=== PATIENT | female | born 1935 | race Caucasian/White ===

== ENCOUNTER 2017-01-01 17:26 | Inpatient (IN) | payer MEDICARE, MEDICAID ==
[~2017-01-01] VITALS: Ht 157.5 cm; Wt 86.2 kg
[2017-01-02] VITALS: BP 113/69
[2017-01-02] MEDS ORDERED: Norco 5mg/325mg tab ORAL PRN (00:30)
[2017-01-02 04:00] VITALS: BP 120/71
[2017-01-02 05:44] LABS: BASOPHILS % (AUTO) 0.7 % (0.0-2.0); EOSINOPHILS % (AUTO) 4.5 % (0.0-3.0); LYMPHOCYTES % (AUTO) 21.4 % (20.0-45.0); MEAN CORPUSCULAR HEMOGLOBIN 29.3 PG (27.0-31.0); MEAN CORPUSCULAR HGB CONC 32.2 G/DL (32.0-36.0); MEAN CORPUSCULAR VOLUME 91 FL (80-99); MEAN PLATELET VOLUME 7.2 FL (6.5-10.1); MONOCYTES % (AUTO) 10.3 % (1.0-10.0); NEUTROPHILS % (AUTO) 63.1 % (45.0-75.0); PLATELET COUNT 212 K/UL (150-450); RED BLOOD COUNT 3.81 M/UL (4.20-5.40); WHITE BLOOD COUNT 5.7 K/UL (4.8-10.8)
[2017-01-02 06:14] LABS: ALANINE AMINOTRANSFERASE 12 U/L (3-33); ALBUMIN/GLOBULIN RATIO 0.8 (1.0-2.7); ANION GAP 14 (5-15); ASPARTATE AMINO TRANSFERASE 14 U/L (5-40); CALCIUM 8.8 mg/dL (8.6-10.2); CARBON DIOXIDE 25 mEQ/L (20-30); CHLORIDE 101 mEQ/L (98-107); CREATININE 1.5 mg/dL (0.5-0.9); HEMOLYSIS 1; PHOSPHORUS 4.1 mg/dL (2.5-4.8); POTASSIUM 4.6 mEQ/L (3.4-4.9); SODIUM 140 mEQ/L (135-145); TOTAL PROTEIN 6.8 g/dL (6.6-8.7)
[2017-01-02 08:00] VITALS: BP 125/65
[2017-01-02] MEDS: Lisinopril 20mg tab ORAL SCH (08:52)
[2017-01-02] MEDS: Heparin 5000 units/ml inj SUBQ SCH ×3 (08:57→21:15)
--- NOTE | 2017-01-02 09:57 | Diagnostic Imaging Report ---
Indication: Pelvic pain, history of left pelvic fracture Technique: Noncontrast spiral acquisitions obtained through the pelvis. Multiplanar reconstructions generated. Total dose length product 633 mGycm. CTDIvol(s) 22 mGy. Dose reduction achieved using automated exposure control Comparison: None Findings: There is a slightly comminuted fracture of the left inferior pubic ramus. This is slightly impacted. More posteriorly, there is buckling of the lateral cortex of the inferior pubic ramus. There is also a minimally displaced comminuted fracture of the medial superior pubic ramus. This is also slightly impacted. There is a small amount of hematoma and ecchymosis in the pelvic wall musculature. No right-sided pelvic fracture demonstrated. No hip fracture. The sacrum is intact. There are degenerative changes of the lumbosacral junction. There is colonic diverticulosis incidentally noted. Impression: Positive for comminuted multipartite fractures of the left superior and inferior pubic rami. Associated minimal pelvic sidewall ecchymosis noted Negative for evidence of acute hip fracture. Incidental finding of colonic diverticulosis The CT scanner at [facility] is accredited by the [employer] and the scans are performed using protocols designed to limit radiation exposure to as low as reasonably achievable to attain images of sufficient resolution adequate for diagnostic evaluation.
[2017-01-02 12:00] VITALS: BP 120/75
[2017-01-02] MEDS: Morphine Sulfate 4mg/ml Inj IVP PRN ×2 (14:09→19:19)
--- NOTE | 2017-01-02 15:58 | Consultation ---
History of Present Illness Present Illness Allergies: Coded Allergies: ORANGE JUICE (Verified Allergy, Unknown, 01/02/17) COPIED FROM UNCODED SECTION [place] (Verified Allergy, Unknown, 01/02/17) COPIED FROM UNCODED SECTION Medication History No Active Prescriptions or Reported Meds Patient History Healthcare decision maker ADONIS PABON Resuscitation status Full Code Advanced Directive on File Physical Exam Last 24 Hour Vital Signs Date Time Temp Pulse Resp B/P Pulse Ox O2 Delivery O2 Flow Rate FiO2 01/02/17 14:39 97.7 01/02/17 12:00 97.7 99 20 120/75 96 Nasal Cannula 2.0 01/02/17 08:52 128/65 01/02/17 08:00 96.8 90 20 125/65 97 Nasal Cannula 2.0 01/02/17 04:00 97.7 90 20 120/71 98 Nasal Cannula 2.0 01/02/17 00:00 97.5 90 18 113/69 97 Nasal Cannula 2.0 Intake and Output 01/01/17 01/02/17 19:00 07:00 Intake Total 240 ml Balance 240 ml Intake Oral 240 ml # Voids 1 Laboratory Tests Test 01/02/17 04:30 White Blood Count 5.7 K/UL (4.8-10.8) Red Blood Count 3.81 M/UL (4.20-5.40) L Hemoglobin 11.2 G/DL (12.0-16.0) L Hematocrit 34.7 % (37.0-47.0) L Mean Corpuscular Volume 91 FL (80-99) Mean Corpuscular Hemoglobin 29.3 PG (27.0-31.0) Mean Corpuscular Hemoglobin Concent 32.2 G/DL (32.0-36.0) Red Cell Distribution Width 14.0 % (11.6-14.8) Platelet Count 212 K/UL (150-450) Mean Platelet Volume 7.2 FL (6.5-10.1) Neutrophils (%) (Auto) 63.1 % (45.0-75.0) Lymphocytes (%) (Auto) 21.4 % (20.0-45.0) Monocytes (%) (Auto) 10.3 % (1.0-10.0) H Eosinophils (%) (Auto) 4.5 % (0.0-3.0) H Basophils (%) (Auto) 0.7 % (0.0-2.0) Prothrombin Time 10.0 SEC (9.30-11.50) Prothromb Time International Ratio 1.0 (0.9-1.1) Activated Partial Thromboplast Time 25 SEC (23-33) Sodium Level 140 mEQ/L (135-145) Potassium Level 4.6 mEQ/L (3.4-4.9) Chloride Level 101 mEQ/L (98-107) Carbon Dioxide Level 25 mEQ/L (20-30) Anion Gap 14 (5-15) Blood Urea Nitrogen 26 mg/dL (7-23) H Creatinine 1.5 mg/dL (0.5-0.9) H Estimat Glomerular Filtration Rate mL/min (>60) Glucose Level 116 mg/dL (74-106) H Calcium Level 8.8 mg/dL (8.6-10.2) Phosphorus Level 4.1 mg/dL (2.5-4.8) Magnesium Level 2.0 mg/dL (1.7-2.5) Total Bilirubin 0.5 mg/dL (0.0-1.2) Aspartate Amino Transf (AST/SGOT) 14 U/L (5-40) Alanine Aminotransferase (ALT/SGPT) 12 U/L (3-33) Alkaline Phosphatase 60 U/L (35-104) Total Protein 6.8 g/dL (6.6-8.7) Albumin 3.2 g/dL (3.5-5.2) L Globulin 3.6 g/dL Albumin/Globulin Ratio 0.8 (1.0-2.7) L Height (Feet): 5 Height (Inches): 2.00 Weight (Pounds): 190 Medications Current Medications Medications (Trade) Dose Ordered Sig/Sosa Route PRN Reason Start Time Stop Time Status Last Admin Dose Admin Acetaminophen (Tylenol) 650 mg Q6H PRN ORAL Mild Pain/Temp > 100.5 01/02/17 00:30 02/01/17 00:29 Acetaminophen/ Hydrocodone Bitart ([place] 5/325) 1 tab Q6H PRN ORAL For Pain 01/02/17 00:30 01/09/17 00:29 Heparin Sodium (Porcine) (Heparin 5000 units/ml) 5,000 units EVERY 8 HOURS SUBQ 01/02/17 08:00 02/01/17 07:59 01/02/17 14:50 Lisinopril (Prinivil) 20 mg DAILY ORAL 01/02/17 09:00 02/01/17 08:59 01/02/17 08:52 Morphine Sulfate (Morphine Sulfate) 4 mg EVERY 6 HOURS PRN IVP Severe Pain (Pain Scale 7-10) 01/02/17 00:30 01/09/17 00:29 01/02/17 14:09 Ondansetron HCl (Zofran) 4 mg EVERY 4 HOURS PRN IVP Nausea & Vomiting 01/02/17 00:30 02/01/17 00:29 JAQUAN SOFIA Jan 02, 2017 15:58
[2017-01-02 16:00] VITALS: BP 127/67
[2017-01-02] MEDS ORDERED: LORazepam 1mg tab ORAL PRN (16:00)
--- NOTE | 2017-01-02 19:09 | History & Physical ---
History and Physical History & Physicial Dictated for Int Med-Dr Aragon no. [id number]. GLENNY MARTINEZ Jan 02, 2017 19:09
[2017-01-02 19:29] VITALS: BP 123/45
[2017-01-02] MEDS: Docusate 100mg cap ORAL SCH (20:57)
--- NOTE | 2017-01-02 22:30 | History and Physical Report ---
DATE OF ADMISSION: 01/01/2017 CHIEF COMPLAINT: The patient is an 81-year-old white female, Serbian speaking, who presents with complaint of pelvic pain. HISTORY OF PRESENT ILLNESS: The patient herself speaks Serbian. I spoke to the patient's daughter, Julio over the telephone, who provided much of the history and physical. According to Julio, fell on 12/30/2016. The patient was then unable to get up. The patient fell while getting off of the toilet. The patient instructed toilet. The patient did not pass out. There was no loss of consciousness. According to Julio , the patient could not get up from the floor. The patient remained on the floor until 01/01/2017. The patient's daughter then called 911. The patient was transported to [facility] emergency room. The patient was found to have fractures of the superior inferior pubic rami on the left. The patient was transferred to [facility] for insurance purposes. The patient was admitted for superior inferior pubic rami fracture on the left as above. PAST MEDICAL HISTORY: Significant for, 1. Hypertension, however, the patient is not taking any medications for several years. 2. L1 fracture secondary to a fall 15 years ago. PAST SURGICAL HISTORY: The patient denies. CURRENT MEDICATIONS: The patient denies. ALLERGIES: No known drug allergies. SOCIAL HISTORY: The patient is a . The patient lives with her adult daughter, Julio. The patient denies tobacco use. The patient admits to rare alcohol use. REVIEW OF SYSTEMS: Constitutional: The patient denies weight loss or weight gain. The patient denies fevers or chills. HEENT: The patient denies ear or throat pain. Cardiovascular: The patient denies palpitations or chest pain. Chest: The patient denies wheezes or shortness of breath. Abdomen: The patient denies nausea, vomiting, diarrhea, or constipation. Genitourinary: The patient denies dysuria or increased frequency of urination. Neuromuscular: The patient complains of pelvic pain as above. The patient denies seizures or generalized weakness. PHYSICAL EXAMINATION: VITAL SIGNS: Temperature 97.7 degrees, respirations 20, pulse 90, and blood pressure 120/71. GENERAL: The patient is well-developed and well-nourished slightly obese white female, in no apparent distress. HEENT: Eyes, pupils are equal and responsive to light and accommodation. Extraocular movements are intact. NECK: Supple without lymphadenopathy. CHEST: Lungs are clear to auscultation bilaterally without wheezes or rales. CARDIOVASCULAR: Regular rate. S1 and S2 normal without murmurs, rubs, or gallops. ABDOMEN: Soft, nontender, and nondistended. Positive bowel sounds. No evidence of hepatosplenomegaly. Currently, no rebound or guarding. EXTREMITIES: Negative for clubbing, cyanosis, or edema. PELVIC: Palpation over the pubic area. LABORATORY AND DIAGNOSTIC DATA: Laboratory studies from [place] WBC 6.5, hemoglobin 11.9, hematocrit 35.8, and platelets 211,000. Sodium 137, potassium 4.6, chloride 104, CO2 25, BUN 30, creatinine 1.57, and glucose 103. An x-ray of the pelvis and hip revealed fractures of the superior and inferior pubic rami on the left. ASSESSMENT: This is an 81-year-old white female, 1. Pelvic pain. 2. Fracture of the left superior inferior pubic rami. 3. Hypertension. TREATMENT: 1. Pelvic pain/fracture of the left superior inferior pubic rami. An Orthopedic consultation with Dr. Andreas Ferguson. The patient is currently receiving oral [place] and intravenous morphine p.r.n. for pain. We will follow recommendation of Orthopedics. The patient may require surgical intervention at this point. 2. Hypertension. The patient is currently off medication. The patient will be given lisinopril 20 mg one tablet p.o. daily. The patient's blood pressure is elevated at this time. Asael Lopes M.D. DR: Nell JOB#: [id number] CC:
[2017-01-03 00:31] VITALS: BP 91/63
[2017-01-03 04:25] VITALS: BP 127/63
[2017-01-03] MEDS: Heparin 5000 units/ml inj SUBQ SCH ×3 (05:50→20:16)
[2017-01-03 07:00] LABS: BASOPHILS % (AUTO) 1.1 % (0.0-2.0); EOSINOPHILS % (AUTO) 3.5 % (0.0-3.0); LYMPHOCYTES % (AUTO) 23.1 % (20.0-45.0); MEAN CORPUSCULAR HEMOGLOBIN 29.1 PG (27.0-31.0); MEAN CORPUSCULAR HGB CONC 31.6 G/DL (32.0-36.0); MEAN CORPUSCULAR VOLUME 92 FL (80-99); MEAN PLATELET VOLUME 6.9 FL (6.5-10.1); MONOCYTES % (AUTO) 10.2 % (1.0-10.0); NEUTROPHILS % (AUTO) 62.2 % (45.0-75.0); PLATELET COUNT 217 K/UL (150-450); RED BLOOD COUNT 4.14 M/UL (4.20-5.40); RED CELL DISTRIBUTION WIDTH 13.6 % (11.6-14.8); WHITE BLOOD COUNT 6.6 K/UL (4.8-10.8)
[2017-01-03 07:18] LABS: ANION GAP 16 (5-15); CARBON DIOXIDE 23 mEQ/L (20-30); CHLORIDE 101 mEQ/L (98-107); CREATININE 1.7 mg/dL (0.5-0.9); HEMOLYSIS 7; SODIUM 140 mEQ/L (135-145)
[2017-01-03 08:00] VITALS: BP 135/64
--- NOTE | 2017-01-03 08:27 | Consultation ---
Consult Note Consult Note 81 yo dominican speaking female. hx gathered from chart- will speak with daughter as well. mechanical fall with pelvic fracture CT left superior and inferior pubic rami fracture no surgical intervention needed. can be WBAT. fu as outpt RANDY ROJAS Jan 03, 2017 08:27
[2017-01-03] MEDS: Lisinopril 20mg tab ORAL SCH (08:35)
[2017-01-03] MEDS: Docusate 100mg cap ORAL SCH ×2 (08:35→20:14)
[2017-01-03] MEDS ORDERED: Sodium Polystyrene Sulfonate 15gm Powder ORAL ONE (08:45)
--- NOTE | 2017-01-03 09:18 | Pulmonology Progress Note ---
Assessment/Plan Assessment/Plan ASSESSMENT s/p mechanical fall pelvic fracture SHANNON on ? CRI HTN PLAN OF CARE MS floor CT pelvis revealed comminuted multipartite fractures of the left superior and inferior pubic rami. ; no acute hip fracture ortho eval noted no surgical intervention needed. can be WBAT. fu with ortho as outpt pain management PT/OT DVT prophylaxis BP management with CASIE and optimize as needed Bowel regimen dc planning ? SNF vs home with HH per PMD , need to access home situation patient is exclusively Croatian speaking and if SNF, needs SNF with staff with Croatian speaking ability ( i.e. [facility] etc) case discussed and evaluated by supervising physician Subjective Allergies: Coded Allergies: ORANGE JUICE (Verified Allergy, Unknown, 01/02/17) COPIED FROM UNCODED SECTION [place] (Verified Allergy, Unknown, 01/02/17) COPIED FROM UNCODED SECTION Subjective denies chest pain, SOB, admits to intermittent low back and sacral pain seen and evaluated by ortho afebrile, no leukocytosis Objective Last 24 Hour Vital Signs Date Time Temp Pulse Resp B/P Pulse Ox O2 Delivery O2 Flow Rate FiO2 01/03/17 08:35 135/64 01/03/17 08:00 98.2 113 24 135/64 96 Room Air 01/03/17 04:25 96.8 100 16 127/63 93 Room Air 01/03/17 00:31 96.8 100 22 91/63 95 Room Air 01/02/17 19:49 98.1 01/02/17 19:29 98.1 78 20 123/45 96 Room Air 01/02/17 16:00 98.6 99 20 127/67 96 Nasal Cannula 2.0 01/02/17 12:00 97.7 99 20 120/75 96 Nasal Cannula 2.0 Intake and Output 01/02/17 01/03/17 19:00 07:00 Intake Total 400 ml 240 ml Balance 400 ml 240 ml Intake Oral 400 ml 240 ml # Voids 2 # Bowel Movements 2 General Appearance: no acute distress, other - awake, alert, exclusively Croatian speaking female HEENT: normocephalic, atraumatic Respiratory/Chest: chest wall non-tender, lungs clear, no respiratory distress , no accessory muscle use Cardiovascular: normal rate, no JVD Abdomen: normal bowel sounds, soft, non tender - obese Neurologic/Psychiatric: abnormal gait, alert, responsive Musculoskeletal: atrophy - BLE Laboratory Tests 01/03/17 04:55: White Blood Count 6.6, Red Blood Count 4.14L, Hemoglobin 12.1, Hematocrit 38.2, Mean Corpuscular Volume 92, Mean Corpuscular Hemoglobin 29.1, Mean Corpuscular Hemoglobin Concent 31.6L, Red Cell Distribution Width 13.6, Platelet Count 217, Mean Platelet Volume 6.9, Neutrophils (%) (Auto) 62.2, Lymphocytes (%) (Auto) 23.1, Monocytes (%) (Auto) 10.2H, Eosinophils (%) (Auto) 3.5H, Basophils (%) ( Auto) 1.1, Sodium Level 140, Potassium Level 5.0H, Chloride Level 101, Carbon Dioxide Level 23, Anion Gap 16H, Blood Urea Nitrogen 35H, Creatinine 1.7H, Estimat Glomerular Filtration Rate , Glucose Level 108H, Calcium Level 9.0 Current Medications Medications (Trade) Dose Ordered Sig/Sosa Route PRN Reason Start Time Stop Time Status Last Admin Dose Admin Acetaminophen (Tylenol) 650 mg Q6H PRN ORAL Mild Pain/Temp > 100.5 01/02/17 00:30 02/01/17 00:29 Acetaminophen/ Hydrocodone Bitart ([place] 5/325) 1 tab Q6H PRN ORAL For Pain 01/02/17 00:30 01/09/17 00:29 Docusate Sodium (Colace) 100 mg EVERY 12 HOURS ORAL 01/02/17 21:00 02/01/17 20:59 01/03/17 08:35 Heparin Sodium (Porcine) (Heparin 5000 units/ml) 5,000 units EVERY 8 HOURS SUBQ 01/02/17 08:00 02/01/17 07:59 01/03/17 05:50 Lisinopril (Prinivil) 20 mg DAILY ORAL 01/02/17 09:00 02/01/17 08:59 01/03/17 08:35 Lorazepam (Ativan) 1 mg Q4H PRN ORAL For Anxiety 01/02/17 16:00 01/09/17 15:59 Morphine Sulfate (Morphine Sulfate) 4 mg EVERY 6 HOURS PRN IVP Severe Pain (Pain Scale 7-10) 01/02/17 00:30 01/09/17 00:29 01/02/17 19:19 Ondansetron HCl (Zofran) 4 mg Q6H PRN IVP Nausea & Vomiting 01/02/17 16:00 02/01/17 15:59 Temazepam (Restoril) 15 mg HSPRN PRN ORAL Insomnia 01/02/17 16:00 01/09/17 15:59 01/02/17 21:11 Minh ([facility])Lennie NP Jan 03, 2017 09:17
[2017-01-03] MEDS ORDERED: D5 1/2NS 1,000 ML IV ONE (10:15)
--- NOTE | 2017-01-03 10:17 | Internal Med Progress Note ---
Subjective Physician Name Seven Nelson Attending Physician Seven Nelson MD Current Medications Medications (Trade) Dose Ordered Sig/Sosa Route PRN Reason Start Time Stop Time Status Last Admin Dose Admin Acetaminophen (Tylenol) 650 mg Q6H PRN ORAL Mild Pain/Temp > 100.5 01/02/17 00:30 02/01/17 00:29 Acetaminophen/ Hydrocodone Bitart ([place] 5/325) 1 tab Q6H PRN ORAL For Pain 01/02/17 00:30 01/09/17 00:29 Docusate Sodium (Colace) 100 mg EVERY 12 HOURS ORAL 01/02/17 21:00 02/01/17 20:59 01/03/17 08:35 Heparin Sodium (Porcine) (Heparin 5000 units/ml) 5,000 units EVERY 8 HOURS SUBQ 01/02/17 08:00 02/01/17 07:59 01/03/17 05:50 Lisinopril (Prinivil) 20 mg DAILY ORAL 01/02/17 09:00 02/01/17 08:59 01/03/17 08:35 Lorazepam (Ativan) 1 mg Q4H PRN ORAL For Anxiety 01/02/17 16:00 01/09/17 15:59 Morphine Sulfate (Morphine Sulfate) 4 mg EVERY 6 HOURS PRN IVP Severe Pain (Pain Scale 7-10) 01/02/17 00:30 01/09/17 00:29 01/02/17 19:19 Ondansetron HCl (Zofran) 4 mg Q6H PRN IVP Nausea & Vomiting 01/02/17 16:00 02/01/17 15:59 Temazepam (Restoril) 15 mg HSPRN PRN ORAL Insomnia 01/02/17 16:00 01/09/17 15:59 01/02/17 21:11 Allergies: Coded Allergies: ORANGE JUICE (Verified Allergy, Unknown, 01/02/17) COPIED FROM UNCODED SECTION [place] (Verified Allergy, Unknown, 01/02/17) COPIED FROM UNCODED SECTION Subjective awake, alert, responsive, C/O pelvic pain Objective Last Vital Signs Date Time Temp Pulse Resp B/P Pulse Ox O2 Delivery O2 Flow Rate FiO2 01/03/17 08:35 135/64 01/03/17 08:00 98.2 113 24 96 Room Air 01/02/17 16:00 2.0 Laboratory Tests Test 01/03/17 04:55 White Blood Count 6.6 K/UL (4.8-10.8) Red Blood Count 4.14 M/UL (4.20-5.40) L Hemoglobin 12.1 G/DL (12.0-16.0) Hematocrit 38.2 % (37.0-47.0) Mean Corpuscular Volume 92 FL (80-99) Mean Corpuscular Hemoglobin 29.1 PG (27.0-31.0) Mean Corpuscular Hemoglobin Concent 31.6 G/DL (32.0-36.0) L Red Cell Distribution Width 13.6 % (11.6-14.8) Platelet Count 217 K/UL (150-450) Mean Platelet Volume 6.9 FL (6.5-10.1) Neutrophils (%) (Auto) 62.2 % (45.0-75.0) Lymphocytes (%) (Auto) 23.1 % (20.0-45.0) Monocytes (%) (Auto) 10.2 % (1.0-10.0) H Eosinophils (%) (Auto) 3.5 % (0.0-3.0) H Basophils (%) (Auto) 1.1 % (0.0-2.0) Sodium Level 140 mEQ/L (135-145) Potassium Level 5.0 mEQ/L (3.4-4.9) H Chloride Level 101 mEQ/L (98-107) Carbon Dioxide Level 23 mEQ/L (20-30) Anion Gap 16 (5-15) H Blood Urea Nitrogen 35 mg/dL (7-23) H Creatinine 1.7 mg/dL (0.5-0.9) H Estimat Glomerular Filtration Rate mL/min (>60) Glucose Level 108 mg/dL (74-106) H Calcium Level 9.0 mg/dL (8.6-10.2) Intake and Output 01/02/17 01/03/17 19:00 07:00 Intake Total 400 ml 240 ml Balance 400 ml 240 ml Intake Oral 400 ml 240 ml # Voids 2 # Bowel Movements 2 Objective General: No acute distress, awake and alert HEENT: NCAT, sclera anicteric, PERRL, EOMI. Neck: Supple, no significant jugular venous distention, Lungs: Good inspiratory effort, no accessory muscle use, clear to auscultation bilaterally, no Wheeze or Rales. Heart: Regular rate and rhythm, normal S1/S2, no murmurs Abdomen: soft, nontender, nondistended. Normoactive bowel sounds. Morbid obesity. / Rectal: pelvic pain Extremities: No Cyanosis , clubbing or edema. Neuro: A&O x 3, Able to move all extremities Skin: warm, no rashes or lesions Psych: Normal mood and affect Assessment/Plan Assessment/Plan Mechanical fall with pelvic fracture --> left superior and inferior pubic rami fracture. HTN Morbid Obesity SHANNON Hyperkalemia Plan: Pain Medication start on IVF PT Mobility Dc Planning for SNF placement AM Labs Seven Nelson MD Jan 03, 2017 10:17
[2017-01-03] MEDS: Morphine Sulfate 4mg/ml Inj IVP PRN ×2 (10:32→20:14)
[2017-01-03 12:18] VITALS: BP 135/52
[2017-01-03 16:32] VITALS: BP 119/62
[2017-01-03 20:28] VITALS: BP 127/74
--- NOTE | 2017-01-03 22:45 | Discharge Summary ---
DATE OF ADMISSION: 01/01/2017 HOSPITAL COURSE: The patient is a pleasant 81-year-old Faroese-speaking female, who was admitted to [facility] after a fall. She was noted to have a left superior and inferior pubic rami fracture. Orthopedic consult has been called to determine if surgical intervention is needed. Majority of history is gathered from the patient's chart. PAST MEDICAL HISTORY: Hypertension. PAST SURGICAL HISTORY: None. CURRENT MEDICATIONS: Please see chart. ALLERGIES: None. SOCIAL HISTORY: She lives with her daughter. She does not drink. She does not smoke. She ambulates independently at baseline. PHYSICAL EXAM: She is a pleasant woman. She is cooperative with examination. She is Faroese speaking. She grimaces with palpation of the left pelvic area and points to pain in this area. She is neurovascularly intact with the lower extremities. She is able to move right and left hip without pain. There is no significant swelling or evidence of any skin breakdown. DIAGNOSTIC DATA: CT scan is reviewed. There is a left superior and inferior pubic rami fracture. IMPRESSION: Left superior and inferior pubic rami fracture after a mechanical fall. DISCUSSION: At this time, I discussed with the patient and her daughter via telephone call of my findings. At this point, the patient does not require surgical intervention. As such, it will go onto healing. She can be weightbearing as tolerated and should receive gentle physical therapy. She will follow up as an outpatient for ongoing follow up and serial x-rays to monitor healing of this fracture. All patient's questions were answered. Fredrick Magana M.D. Tejas Johnson DR: JOYCE JOB#: [id number] CC:
[2017-01-04 00:18] VITALS: BP 126/70
[2017-01-04 04:22] VITALS: BP 120/80
[2017-01-04] MEDS: Heparin 5000 units/ml inj SUBQ SCH ×3 (06:00→21:32)
[2017-01-04 06:22] LABS: BASOPHILS % (AUTO) 1.2 % (0.0-2.0); EOSINOPHILS % (AUTO) 3.7 % (0.0-3.0); LYMPHOCYTES % (AUTO) 21.2 % (20.0-45.0); MEAN CORPUSCULAR HEMOGLOBIN 29.2 PG (27.0-31.0); MEAN CORPUSCULAR VOLUME 91 FL (80-99); MONOCYTES % (AUTO) 10.6 % (1.0-10.0); NEUTROPHILS % (AUTO) 63.3 % (45.0-75.0); PLATELET COUNT 215 K/UL (150-450); RED BLOOD COUNT 3.88 M/UL (4.20-5.40); RED CELL DISTRIBUTION WIDTH 13.7 % (11.6-14.8); WHITE BLOOD COUNT 6.2 K/UL (4.8-10.8)
[2017-01-04 06:40] LABS: ANION GAP 13 (5-15); CALCIUM 8.8 mg/dL (8.6-10.2); CARBON DIOXIDE 25 mEQ/L (20-30); CHLORIDE 101 mEQ/L (98-107); CREATININE 1.3 mg/dL (0.5-0.9); HEMOLYSIS 1; MAGNESIUM 1.6 mg/dL (1.7-2.5); PHOSPHORUS 4.3 mg/dL (2.5-4.8); POTASSIUM 4.6 mEQ/L (3.4-4.9); SODIUM 139 mEQ/L (135-145)
[2017-01-04 08:07] VITALS: BP 134/69
[2017-01-04] MEDS: Lisinopril 20mg tab ORAL SCH (08:35)
[2017-01-04] MEDS: Docusate 100mg cap ORAL SCH ×2 (08:35→21:31)
[2017-01-04] MEDS: Morphine Sulfate 4mg/ml Inj IVP PRN (11:31)
[2017-01-04 12:17] VITALS: BP 140/84
--- NOTE | 2017-01-04 14:29 | Pulmonology Progress Note ---
Assessment/Plan Assessment/Plan ASSESSMENT s/p mechanical fall pelvic fracture SHANNON on ? CRI HTN PLAN OF CARE MS floor CT pelvis revealed comminuted multipartite fractures of the left superior and inferior pubic rami. ; no acute hip fracture ortho eval noted no surgical intervention needed. can be WBAT. fu with ortho as outpt pain management PT/OT DVT prophylaxis BP management with CASIE and optimize as needed Bowel regimen dc planning ? SNF vs home with HH per PMD , need to access home situation patient is exclusively Gambian speaking and if SNF, needs SNF with staff with Gambian speaking ability ( i.e. [facility] etc) case discussed and evaluated by supervising physician Subjective Allergies: Coded Allergies: ORANGE JUICE (Verified Allergy, Unknown, 01/02/17) COPIED FROM UNCODED SECTION [place] (Verified Allergy, Unknown, 01/02/17) COPIED FROM UNCODED SECTION Subjective denies chest pain, SOB, admits to occasional low back and sacral pain seen and evaluated by ortho afebrile, no leukocytosis Objective Last 24 Hour Vital Signs Date Time Temp Pulse Resp B/P Pulse Ox O2 Delivery O2 Flow Rate FiO2 01/04/17 12:17 97.9 108 19 140/84 95 Room Air 01/04/17 12:01 97.9 01/04/17 08:35 134/69 01/04/17 08:07 97.9 107 19 134/69 93 Room Air 01/04/17 04:22 97.5 92 19 120/80 97 Room Air 01/04/17 00:18 98.1 98 19 126/70 91 Room Air 01/03/17 20:28 99.0 103 19 127/74 91 Room Air 01/03/17 16:32 98.1 101 18 119/62 94 Room Air Intake and Output 01/03/17 01/04/17 19:00 07:00 Intake Total 885 ml 240 ml Output Total 250 ml Balance 635 ml 240 ml Intake Oral 360 ml 240 ml IV Total 525 ml Output Urine Total 250 ml # Voids 1 1 Objective General Appearance: no acute distress, awake, alert, exclusively Gambian speaking female HEENT: normocephalic, atraumatic Respiratory/Chest: chest wall non-tender, lungs clear, no respiratory distress , no accessory muscle use Cardiovascular: normal rate, no JVD Abdomen: normal bowel sounds, soft, non tender , obese Neurologic/Psychiatric: abnormal gait, alert, responsive Musculoskeletal: atrophy - BLE Laboratory Tests 01/04/17 05:50: White Blood Count 6.2, Red Blood Count 3.88L, Hemoglobin 11.3L, Hematocrit 35.4L , Mean Corpuscular Volume 91, Mean Corpuscular Hemoglobin 29.2, Mean Corpuscular Hemoglobin Concent 32.0, Red Cell Distribution Width 13.7, Platelet Count 215, Mean Platelet Volume 7.0, Neutrophils (%) (Auto) 63.3, Lymphocytes (% ) (Auto) 21.2, Monocytes (%) (Auto) 10.6H, Eosinophils (%) (Auto) 3.7H, Basophils (%) (Auto) 1.2, Sodium Level 139, Potassium Level 4.6, Chloride Level 101, Carbon Dioxide Level 25, Anion Gap 13, Blood Urea Nitrogen 28H, Creatinine 1.3H, Estimat Glomerular Filtration Rate , Glucose Level 116H, Calcium Level 8.8 , Phosphorus Level 4.3, Magnesium Level 1.6L Current Medications Medications (Trade) Dose Ordered Sig/Sosa Route PRN Reason Start Time Stop Time Status Last Admin Dose Admin Acetaminophen (Tylenol) 650 mg Q6H PRN ORAL Mild Pain/Temp > 100.5 01/02/17 00:30 02/01/17 00:29 Acetaminophen/ Hydrocodone Bitart ([place] 5/325) 1 tab Q6H PRN ORAL For Pain 01/02/17 00:30 01/09/17 00:29 Docusate Sodium (Colace) 100 mg EVERY 12 HOURS ORAL 01/02/17 21:00 02/01/17 20:59 01/04/17 08:35 Heparin Sodium (Porcine) (Heparin 5000 units/ml) 5,000 units EVERY 8 HOURS SUBQ 01/02/17 08:00 02/01/17 07:59 01/03/17 20:16 Lisinopril (Prinivil) 20 mg DAILY ORAL 01/02/17 09:00 02/01/17 08:59 01/04/17 08:35 Lorazepam (Ativan) 1 mg Q4H PRN ORAL For Anxiety 01/02/17 16:00 01/09/17 15:59 Morphine Sulfate (Morphine Sulfate) 4 mg EVERY 6 HOURS PRN IVP Severe Pain (Pain Scale 7-10) 01/02/17 00:30 01/09/17 00:29 01/04/17 11:31 Ondansetron HCl (Zofran) 4 mg Q6H PRN IVP Nausea & Vomiting 01/02/17 16:00 02/01/17 15:59 Temazepam (Restoril) 15 mg HSPRN PRN ORAL Insomnia 01/02/17 16:00 01/09/17 15:59 01/02/17 21:11 [facility] Ny NP Jan 04, 2017 14:29
--- NOTE | 2017-01-04 14:54 | Internal Med Progress Note ---
Subjective Date of Service: Jan 04, 2017 Physician Name Asael Martinez Attending Physician Seven Nelson MD Current Medications Medications (Trade) Dose Ordered Sig/Sosa Route PRN Reason Start Time Stop Time Status Last Admin Dose Admin Acetaminophen (Tylenol) 650 mg Q6H PRN ORAL Mild Pain/Temp > 100.5 01/02/17 00:30 02/01/17 00:29 Acetaminophen/ Hydrocodone Bitart ([place] 5/325) 1 tab Q6H PRN ORAL For Pain 01/02/17 00:30 01/09/17 00:29 Docusate Sodium (Colace) 100 mg EVERY 12 HOURS ORAL 01/02/17 21:00 02/01/17 20:59 01/04/17 08:35 Heparin Sodium (Porcine) (Heparin 5000 units/ml) 5,000 units EVERY 8 HOURS SUBQ 01/02/17 08:00 02/01/17 07:59 01/03/17 20:16 Lisinopril (Prinivil) 20 mg DAILY ORAL 01/02/17 09:00 02/01/17 08:59 01/04/17 08:35 Lorazepam (Ativan) 1 mg Q4H PRN ORAL For Anxiety 01/02/17 16:00 01/09/17 15:59 Morphine Sulfate (Morphine Sulfate) 4 mg EVERY 6 HOURS PRN IVP Severe Pain (Pain Scale 7-10) 01/02/17 00:30 01/09/17 00:29 01/04/17 11:31 Ondansetron HCl (Zofran) 4 mg Q6H PRN IVP Nausea & Vomiting 01/02/17 16:00 02/01/17 15:59 Temazepam (Restoril) 15 mg HSPRN PRN ORAL Insomnia 01/02/17 16:00 01/09/17 15:59 01/02/17 21:11 Allergies: Coded Allergies: ORANGE JUICE (Verified Allergy, Unknown, 01/02/17) COPIED FROM UNCODED SECTION [place] (Verified Allergy, Unknown, 01/02/17) COPIED FROM UNCODED SECTION ROS Limited/Unobtainable: No Constitutional: Reports: no symptoms HEENT: Reports: no symptoms Cardiovascular: Reports: no symptoms Respiratory: Reports: no symptoms Gastrointestinal/Abdominal: Reports: no symptoms Genitourinary: Reports: no symptoms Neurologic/Psychiatric: Reports: no symptoms Subjective 81 YO F admitted with pelvic pain and fall injury. Now fractured pelvis. Cover for Int Med-Dr Nelson. Await care home fac placement Objective Last Vital Signs Date Time Temp Pulse Resp B/P Pulse Ox O2 Delivery O2 Flow Rate FiO2 01/04/17 12:17 97.9 108 19 140/84 95 Room Air 01/02/17 16:00 2.0 Laboratory Tests Test 01/04/17 05:50 White Blood Count 6.2 K/UL (4.8-10.8) Red Blood Count 3.88 M/UL (4.20-5.40) L Hemoglobin 11.3 G/DL (12.0-16.0) L Hematocrit 35.4 % (37.0-47.0) L Mean Corpuscular Volume 91 FL (80-99) Mean Corpuscular Hemoglobin 29.2 PG (27.0-31.0) Mean Corpuscular Hemoglobin Concent 32.0 G/DL (32.0-36.0) Red Cell Distribution Width 13.7 % (11.6-14.8) Platelet Count 215 K/UL (150-450) Mean Platelet Volume 7.0 FL (6.5-10.1) Neutrophils (%) (Auto) 63.3 % (45.0-75.0) Lymphocytes (%) (Auto) 21.2 % (20.0-45.0) Monocytes (%) (Auto) 10.6 % (1.0-10.0) H Eosinophils (%) (Auto) 3.7 % (0.0-3.0) H Basophils (%) (Auto) 1.2 % (0.0-2.0) Sodium Level 139 mEQ/L (135-145) Potassium Level 4.6 mEQ/L (3.4-4.9) Chloride Level 101 mEQ/L (98-107) Carbon Dioxide Level 25 mEQ/L (20-30) Anion Gap 13 (5-15) Blood Urea Nitrogen 28 mg/dL (7-23) H Creatinine 1.3 mg/dL (0.5-0.9) H Estimat Glomerular Filtration Rate mL/min (>60) Glucose Level 116 mg/dL (74-106) H Calcium Level 8.8 mg/dL (8.6-10.2) Phosphorus Level 4.3 mg/dL (2.5-4.8) Magnesium Level 1.6 mg/dL (1.7-2.5) L Intake and Output 01/03/17 01/04/17 19:00 07:00 Intake Total 885 ml 240 ml Output Total 250 ml Balance 635 ml 240 ml Intake Oral 360 ml 240 ml IV Total 525 ml Output Urine Total 250 ml # Voids 1 1 Objective General: alert, cooperative, no distress, appears stated age Head: normocephalic, without obvious abnormality, atraumatic Eyes: conjunctivae/corneas clear. PERRL, EOM's intact Throat: lips, mucosa, and tongue normal. MMM Neck: supple, symmetrical, trachea midline, and no JVD Lungs: clear to auscultation bilaterally Heart: regular rate and rhythm, S1, S2 normal, no murmur, click, rub or gallop Abdomen: soft, non-tender, non-distended, bowel sounds normal; no masses or organomegaly Extremities: extremities normal, atraumatic, no cyanosis or edema Pulses: 2+ and symmetric Skin: skin color, texture, turgor normal; no rashes or lesions Neurologic: grossly normal, no focal deficits Assessment/Plan Problem List: (1) Pelvic pain Assessment & Plan: Due to fracture. See orthopedic note. Weight bearing as tolerated. (2) Hypertension Assessment & Plan: Continue lisinopril. (3) Fracture of left pelvis Assessment & Plan: See ortho note. Weight bearing as tolerated. Await care home fac placement Assessment/Plan Discharge planning: care home facility. ASAEL MARTINEZ Jan 04, 2017 14:54
[2017-01-04 16:21] VITALS: BP 125/66
[2017-01-04 20:15] VITALS: BP 108/69
--- NOTE | 2017-01-05 01:11 | Cardiology Report ---
APPROVED REPORT EKG Measurement Heart [id number] Sinus rhythm with 1st degree AV block Cannot rule out Anterior infarct, age undetermined Abnormal ECG
[2017-01-05 04:00] VITALS: BP 145/69
[2017-01-05] MEDS: Heparin 5000 units/ml inj SUBQ SCH ×3 (05:31→20:55)
[2017-01-05 07:27] LABS: BASOPHILS % (AUTO) 0.9 % (0.0-2.0); EOSINOPHILS % (AUTO) 2.9 % (0.0-3.0); LYMPHOCYTES % (AUTO) 16.1 % (20.0-45.0); MEAN CORPUSCULAR VOLUME 91 FL (80-99); MEAN PLATELET VOLUME 7.5 FL (6.5-10.1); NEUTROPHILS % (AUTO) 70.1 % (45.0-75.0); PLATELET COUNT 217 K/UL (150-450); RED BLOOD COUNT 3.68 M/UL (4.20-5.40); RED CELL DISTRIBUTION WIDTH 13.5 % (11.6-14.8); WHITE BLOOD COUNT 6.7 K/UL (4.8-10.8)
[2017-01-05 07:48] LABS: ANION GAP 14 (5-15); CALCIUM 9.3 mg/dL (8.6-10.2); CARBON DIOXIDE 25 mEQ/L (20-30); CHLORIDE 99 mEQ/L (98-107); CREATININE 1.5 mg/dL (0.5-0.9); HEMOLYSIS 3; POTASSIUM 4.4 mEQ/L (3.4-4.9); SODIUM 138 mEQ/L (135-145)
[2017-01-05 08:00] VITALS: BP 114/62
[2017-01-05] MEDS: Docusate 100mg cap ORAL SCH ×2 (08:33→20:56)
[2017-01-05] MEDS: Lisinopril 20mg tab ORAL SCH (08:34)
[2017-01-05] MEDS: Morphine Sulfate 4mg/ml Inj IVP PRN (08:53)
[2017-01-05 12:00] VITALS: BP 119/65
--- NOTE | 2017-01-05 13:07 | Pulmonology Progress Note ---
Assessment/Plan Assessment/Plan ASSESSMENT s/p mechanical fall pelvic fracture SHANNON on ? 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 ; no acute hip fracture ortho eval noted no surgical intervention needed. WBAT. fu with ortho as outpt pain management PT/OT DVT prophylaxis BP management with CASIE and optimize as needed Bowel regimen dc planning ? SNF vs home with HH per PMD , need to access home situation patient is exclusively [place]ian speaking and if SNF, needs SNF with staff with [place] speaking ability ( i.e. [facility] etc) patient prefers to go home with HH services for PT/OT arrangement in process case discussed and evaluated by supervising physician Subjective Allergies: Coded Allergies: ORANGE JUICE (Verified Allergy, Unknown, 01/02/17) COPIED FROM UNCODED SECTION [place] (Verified Allergy, Unknown, 01/02/17) COPIED FROM UNCODED SECTION Subjective denies chest pain, SOB, admits to occasional low back and sacral pain , which controlled with medications seen and evaluated by ortho afebrile, no leukocytosis Objective Last 24 Hour Vital Signs Date Time Temp Pulse Resp B/P Pulse Ox O2 Delivery O2 Flow Rate FiO2 01/05/17 12:00 97.9 94 20 119/65 95 Room Air 01/05/17 09:23 97.9 01/05/17 08:34 114/62 01/05/17 08:00 97.9 116 17 114/62 93 Room Air 01/05/17 04:00 97.7 87 19 145/69 94 Room Air 01/04/17 20:15 97.7 62 19 108/69 97 Room Air 01/04/17 16:21 97.5 77 19 125/66 93 Room Air Intake and Output 01/04/17 01/05/17 19:00 07:00 # Voids 2 Objective General Appearance: no acute distress, awake, alert, exclusively [place]ian speaking female HEENT: normocephalic, atraumatic Respiratory/Chest: chest wall non-tender, lungs clear, no respiratory distress , no accessory muscle use Cardiovascular: normal rate, no JVD Abdomen: normal bowel sounds, soft, non tender , obese Neurologic/Psychiatric: abnormal gait, alert, responsive Musculoskeletal: atrophy - BLE Laboratory Tests 01/05/17 05:05: White Blood Count 6.7, Red Blood Count 3.68L, Hemoglobin 11.0L, Hematocrit 33.4L , Mean Corpuscular Volume 91, Mean Corpuscular Hemoglobin 30.0, Mean Corpuscular Hemoglobin Concent 33.0, Red Cell Distribution Width 13.5, Platelet Count 217, Mean Platelet Volume 7.5, Neutrophils (%) (Auto) 70.1, Lymphocytes (% ) (Auto) 16.1L, Monocytes (%) (Auto) 10.0, Eosinophils (%) (Auto) 2.9, Basophils (%) (Auto) 0.9, Sodium Level 138, Potassium Level 4.4, Chloride Level 99, Carbon Dioxide Level 25, Anion Gap 14, Blood Urea Nitrogen 30H, Creatinine 1.5H, Estimat Glomerular Filtration Rate , Glucose Level 113H, Calcium Level 9.3 Current Medications Medications (Trade) Dose Ordered Sig/Sosa Route PRN Reason Start Time Stop Time Status Last Admin Dose Admin Acetaminophen (Tylenol) 650 mg Q6H PRN ORAL Mild Pain/Temp > 100.5 01/02/17 00:30 02/01/17 00:29 Acetaminophen/ Hydrocodone Bitart ([place] 5/325) 1 tab Q6H PRN ORAL For Pain 01/02/17 00:30 01/09/17 00:29 Docusate Sodium (Colace) 100 mg EVERY 12 HOURS ORAL 01/02/17 21:00 02/01/17 20:59 01/05/17 08:33 Heparin Sodium (Porcine) (Heparin 5000 units/ml) 5,000 units EVERY 8 HOURS SUBQ 01/02/17 08:00 02/01/17 07:59 01/05/17 05:31 Lisinopril (Prinivil) 20 mg DAILY ORAL 01/02/17 09:00 02/01/17 08:59 01/05/17 08:34 Lorazepam (Ativan) 1 mg Q4H PRN ORAL For Anxiety 01/02/17 16:00 01/09/17 15:59 Morphine Sulfate (Morphine Sulfate) 4 mg EVERY 6 HOURS PRN IVP Severe Pain (Pain Scale 7-10) 01/02/17 00:30 01/09/17 00:29 01/05/17 08:53 Ondansetron HCl (Zofran) 4 mg Q6H PRN IVP Nausea & Vomiting 6/1/17 16:00 02/01/17 15:59 Temazepam (Restoril) 15 mg HSPRN PRN ORAL Insomnia 01/02/17 16:00 01/09/17 15:59 01/02/17 21:11 Minh ([facility])Lennie NP Jan 05, 2017 13:07
--- NOTE | 2017-01-05 15:50 | Internal Med Progress Note ---
Subjective Date of Service: Jan 05, 2017 Physician Name Glenny Martinez Attending Physician Seven Nelson MD Current Medications Medications (Trade) Dose Ordered Sig/Sosa Route PRN Reason Start Time Stop Time Status Last Admin Dose Admin Acetaminophen (Tylenol) 650 mg Q6H PRN ORAL Mild Pain/Temp > 100.5 01/02/17 00:30 02/01/17 00:29 Acetaminophen/ Hydrocodone Bitart ([place] 5/325) 1 tab Q6H PRN ORAL For Pain 01/02/17 00:30 01/09/17 00:29 Docusate Sodium (Colace) 100 mg EVERY 12 HOURS ORAL 01/02/17 21:00 02/01/17 20:59 01/05/17 08:33 Heparin Sodium (Porcine) (Heparin 5000 units/ml) 5,000 units EVERY 8 HOURS SUBQ 01/02/17 08:00 02/01/17 07:59 01/05/17 14:53 Lisinopril (Prinivil) 20 mg DAILY ORAL 01/02/17 09:00 02/01/17 08:59 01/05/17 08:34 Lorazepam (Ativan) 1 mg Q4H PRN ORAL For Anxiety 01/02/17 16:00 01/09/17 15:59 Morphine Sulfate (Morphine Sulfate) 4 mg EVERY 6 HOURS PRN IVP Severe Pain (Pain Scale 7-10) 01/02/17 00:30 01/09/17 00:29 01/05/17 08:53 Ondansetron HCl (Zofran) 4 mg Q6H PRN IVP Nausea & Vomiting 01/02/17 16:00 02/01/17 15:59 Temazepam (Restoril) 15 mg HSPRN PRN ORAL Insomnia 01/02/17 16:00 01/09/17 15:59 01/02/17 21:11 Allergies: Coded Allergies: ORANGE JUICE (Verified Allergy, Unknown, 01/02/17) COPIED FROM UNCODED SECTION [place] (Verified Allergy, Unknown, 01/02/17) COPIED FROM UNCODED SECTION Subjective 81 YO F admitted with pelvic pain and fall injury. Now fractured pelvis. Cover for Int Fernando-Dr Nelson. Objective Last Vital Signs Date Time Temp Pulse Resp B/P Pulse Ox O2 Delivery O2 Flow Rate FiO2 01/05/17 12:00 97.9 94 20 119/65 95 Room Air 01/02/17 16:00 2.0 Laboratory Tests Test 01/05/17 05:05 White Blood Count 6.7 K/UL (4.8-10.8) Red Blood Count 3.68 M/UL (4.20-5.40) L Hemoglobin 11.0 G/DL (12.0-16.0) L Hematocrit 33.4 % (37.0-47.0) L Mean Corpuscular Volume 91 FL (80-99) Mean Corpuscular Hemoglobin 30.0 PG (27.0-31.0) Mean Corpuscular Hemoglobin Concent 33.0 G/DL (32.0-36.0) Red Cell Distribution Width 13.5 % (11.6-14.8) Platelet Count 217 K/UL (150-450) Mean Platelet Volume 7.5 FL (6.5-10.1) Neutrophils (%) (Auto) 70.1 % (45.0-75.0) Lymphocytes (%) (Auto) 16.1 % (20.0-45.0) L Monocytes (%) (Auto) 10.0 % (1.0-10.0) Eosinophils (%) (Auto) 2.9 % (0.0-3.0) Basophils (%) (Auto) 0.9 % (0.0-2.0) Sodium Level 138 mEQ/L (135-145) Potassium Level 4.4 mEQ/L (3.4-4.9) Chloride Level 99 mEQ/L (98-107) Carbon Dioxide Level 25 mEQ/L (20-30) Anion Gap 14 (5-15) Blood Urea Nitrogen 30 mg/dL (7-23) H Creatinine 1.5 mg/dL (0.5-0.9) H Estimat Glomerular Filtration Rate mL/min (>60) Glucose Level 113 mg/dL (74-106) H Calcium Level 9.3 mg/dL (8.6-10.2) Intake and Output 01/04/17 01/05/17 19:00 07:00 # Voids 2 Objective General: alert, cooperative, no distress, appears stated age Head: normocephalic, without obvious abnormality, atraumatic Eyes: conjunctivae/corneas clear. PERRL, EOM's intact Throat: lips, mucosa, and tongue normal. MMM Neck: supple, symmetrical, trachea midline, and no JVD Lungs: clear to auscultation bilaterally Heart: regular rate and rhythm, S1, S2 normal, no murmur, click, rub or gallop Abdomen: soft, non-tender, non-distended, bowel sounds normal; no masses or organomegaly Extremities: extremities normal, atraumatic, no cyanosis or edema Pulses: 2+ and symmetric Skin: skin color, texture, turgor normal; no rashes or lesions Neurologic: grossly normal, no focal deficits Assessment/Plan Problem List: (1) Pelvic pain Assessment & Plan: Due to fracture. See orthopedic note. Weight bearing as tolerated. (2) Hypertension Assessment & Plan: Continue lisinopril. (3) Fracture of left pelvis Assessment & Plan: See ortho note. Weight bearing as tolerated. Await [facility] fac placement Assessment/Plan Discharge planning: Home with [facility]. D/W daughter at bedside. GLENNY MARTINEZ Jan 05, 2017 15:50
[2017-01-05 16:00] VITALS: BP 117/72
[2017-01-05 20:00] VITALS: BP 125/71
[2017-01-06] VITALS: BP 124/74
[2017-01-06 04:00] VITALS: BP 145/73
[2017-01-06] MEDS: Heparin 5000 units/ml inj SUBQ SCH ×2 (05:34→14:16)
[2017-01-06 06:20] LABS: LYMPHOCYTES % (AUTO) 18.4 % (20.0-45.0); MEAN CORPUSCULAR HEMOGLOBIN 29.8 PG (27.0-31.0); MEAN CORPUSCULAR HGB CONC 33.2 G/DL (32.0-36.0); MEAN CORPUSCULAR VOLUME 90 FL (80-99); MONOCYTES % (AUTO) 10.3 % (1.0-10.0); NEUTROPHILS % (AUTO) 67.4 % (45.0-75.0); PLATELET COUNT 239 K/UL (150-450); RED BLOOD COUNT 3.75 M/UL (4.20-5.40); RED CELL DISTRIBUTION WIDTH 13.4 % (11.6-14.8); WHITE BLOOD COUNT 6.2 K/UL (4.8-10.8)
[2017-01-06 06:46] LABS: ANION GAP 15 (5-15); CALCIUM 9.2 mg/dL (8.6-10.2); CARBON DIOXIDE 23 mEQ/L (20-30); CHLORIDE 99 mEQ/L (98-107); CREATININE 1.5 mg/dL (0.5-0.9); HEMOLYSIS 3; POTASSIUM 4.4 mEQ/L (3.4-4.9); SODIUM 137 mEQ/L (135-145)
[2017-01-06 08:00] VITALS: BP 148/74
[2017-01-06] MEDS: Docusate 100mg cap ORAL SCH (08:38)
[2017-01-06] MEDS: Lisinopril 20mg tab ORAL SCH (08:38)
[2017-01-06] MEDS: Morphine Sulfate 4mg/ml Inj IVP PRN (10:02)
[2017-01-06] MEDS ORDERED: NORCO 5-325 TA1 EACH ORAL (11:08)
[2017-01-06] MEDS ORDERED: LISINOPRIL20 MG ORAL (11:08)
--- NOTE | 2017-01-06 11:10 | Internal Med Progress Note ---
Subjective Date of Service: Jan 06, 2017 Physician Name Glenny Martinez Attending Physician Seven Nelson MD Current Medications Medications (Trade) Dose Ordered Sig/Sosa Route PRN Reason Start Time Stop Time Status Last Admin Dose Admin Acetaminophen (Tylenol) 650 mg Q6H PRN ORAL Mild Pain/Temp > 100.5 01/02/17 00:30 02/01/17 00:29 Acetaminophen/ Hydrocodone Bitart ([place] 5/325) 1 tab Q6H PRN ORAL For Pain 01/02/17 00:30 01/09/17 00:29 Docusate Sodium (Colace) 100 mg EVERY 12 HOURS ORAL 01/02/17 21:00 02/01/17 20:59 01/06/17 08:38 Heparin Sodium (Porcine) (Heparin 5000 units/ml) 5,000 units EVERY 8 HOURS SUBQ 01/02/17 08:00 02/01/17 07:59 01/06/17 05:34 Lisinopril (Prinivil) 20 mg DAILY ORAL 01/02/17 09:00 02/01/17 08:59 01/06/17 08:38 Lorazepam (Ativan) 1 mg Q4H PRN ORAL For Anxiety 01/02/17 16:00 01/09/17 15:59 Morphine Sulfate (Morphine Sulfate) 4 mg EVERY 6 HOURS PRN IVP Severe Pain (Pain Scale 7-10) 01/02/17 00:30 01/09/17 00:29 01/06/17 10:02 Ondansetron HCl (Zofran) 4 mg Q6H PRN IVP Nausea & Vomiting 01/02/17 16:00 02/01/17 15:59 Temazepam (Restoril) 15 mg HSPRN PRN ORAL Insomnia 01/02/17 16:00 01/09/17 15:59 01/02/17 21:11 Allergies: Coded Allergies: ORANGE JUICE (Verified Allergy, Unknown, 01/02/17) COPIED FROM UNCODED SECTION [place] (Verified Allergy, Unknown, 01/02/17) COPIED FROM UNCODED SECTION ROS Limited/Unobtainable: No Constitutional: Reports: no symptoms HEENT: Reports: no symptoms Cardiovascular: Reports: no symptoms Respiratory: Reports: no symptoms Gastrointestinal/Abdominal: Reports: no symptoms Genitourinary: Reports: no symptoms Neurologic/Psychiatric: Reports: no symptoms Subjective 81 YO F admitted with pelvic pain and fall injury. Now fractured pelvis. Cover for Int Fernando-Dr Nelson. Objective Last Vital Signs Date Time Temp Pulse Resp B/P Pulse Ox O2 Delivery O2 Flow Rate FiO2 01/06/17 10:32 96.6 01/06/17 08:38 148/74 01/06/17 08:00 94 18 92 Room Air 01/02/17 16:00 2.0 Laboratory Tests Test 01/06/17 05:30 White Blood Count 6.2 K/UL (4.8-10.8) Red Blood Count 3.75 M/UL (4.20-5.40) L Hemoglobin 11.2 G/DL (12.0-16.0) L Hematocrit 33.6 % (37.0-47.0) L Mean Corpuscular Volume 90 FL (80-99) Mean Corpuscular Hemoglobin 29.8 PG (27.0-31.0) Mean Corpuscular Hemoglobin Concent 33.2 G/DL (32.0-36.0) Red Cell Distribution Width 13.4 % (11.6-14.8) Platelet Count 239 K/UL (150-450) Mean Platelet Volume 7.0 FL (6.5-10.1) Neutrophils (%) (Auto) 67.4 % (45.0-75.0) Lymphocytes (%) (Auto) 18.4 % (20.0-45.0) L Monocytes (%) (Auto) 10.3 % (1.0-10.0) H Eosinophils (%) (Auto) 3.0 % (0.0-3.0) Basophils (%) (Auto) 1.0 % (0.0-2.0) Sodium Level 137 mEQ/L (135-145) Potassium Level 4.4 mEQ/L (3.4-4.9) Chloride Level 99 mEQ/L (98-107) Carbon Dioxide Level 23 mEQ/L (20-30) Anion Gap 15 (5-15) Blood Urea Nitrogen 28 mg/dL (7-23) H Creatinine 1.5 mg/dL (0.5-0.9) H Estimat Glomerular Filtration Rate mL/min (>60) Glucose Level 108 mg/dL (74-106) H Calcium Level 9.2 mg/dL (8.6-10.2) Intake and Output 01/05/17 01/06/17 19:00 07:00 Intake Total 600 ml 540 ml Balance 600 ml 540 ml Intake Oral 600 ml 540 ml # Voids 1 3 Objective General: alert, cooperative, no distress, appears stated age Head: normocephalic, without obvious abnormality, atraumatic Eyes: conjunctivae/corneas clear. PERRL, EOM's intact Throat: lips, mucosa, and tongue normal. MMM Neck: supple, symmetrical, trachea midline, and no JVD Lungs: clear to auscultation bilaterally Heart: regular rate and rhythm, S1, S2 normal, no murmur, click, rub or gallop Abdomen: soft, non-tender, non-distended, bowel sounds normal; no masses or organomegaly Extremities: extremities normal, atraumatic, no cyanosis or edema Pulses: 2+ and symmetric Skin: skin color, texture, turgor normal; no rashes or lesions Neurologic: grossly normal, no focal deficits Assessment/Plan Problem List: (1) Pelvic pain Assessment & Plan: Due to fracture. See orthopedic note. Weight bearing as tolerated. (2) Hypertension Assessment & Plan: Continue lisinopril. (3) Fracture of left pelvis Assessment & Plan: See ortho note. Weight bearing as tolerated. Await alf fac placement Status: stable Assessment/Plan Discharge home today with [facility]. D/W daughter at bedside. GLENNY MARTINEZ Jan 06, 2017 11:10
[2017-01-06 12:00] VITALS: BP 106/59
--- NOTE | 2017-01-06 15:48 | Wound Care Consultation ---
Wound Assessment Wound Assessment : Wound Present on Admission: No New Wound: Yes Status Change of Wound: No Wound Location Body Site Modif: mid Wound Location Body Site: sacral Wound Type: rash Ronald Test: Does not Ronald Wound Length: 3.0 Wound Width: 6.0 Percent of Wound Bernard/Red: 100 Wound Drainage Amount: None Wound Drainage Odor: None/Absent Tissue Surrounding Wound: Intact Wound General Appearance: Asymptomatic, Reddened Wound Comment #1 Rash on sacral area Recommendation -Local wound care per protocol for rash on sacral area -Keep clean and dry -Turn and reposition -Optimize nutrition -Assess and f/u accordingly for any changes SIS WINCHESTER RN Jan 06, 2017 15:48
[2017-01-06 16:00] VITALS: BP 120/67
--- NOTE | 2017-01-06 16:03 | Pulmonology Progress Note ---
Subjective Allergies: Coded Allergies: ORANGE JUICE (Verified Allergy, Unknown, 01/02/17) COPIED FROM UNCODED SECTION [place] (Verified Allergy, Unknown, 01/02/17) COPIED FROM UNCODED SECTION Objective Last 24 Hour Vital Signs Date Time Temp Pulse Resp B/P Pulse Ox O2 Delivery O2 Flow Rate FiO2 01/06/17 12:00 98.1 106 18 106/59 93 Room Air 01/06/17 10:32 96.6 01/06/17 08:38 148/74 01/06/17 08:00 96.6 94 18 148/74 92 Room Air 01/06/17 04:00 97.9 94 18 145/73 96 01/06/17 00:00 98.0 90 18 124/74 94 Room Air 01/05/17 20:00 98.4 93 18 125/71 93 Room Air Intake and Output 01/05/17 01/06/17 19:00 07:00 Intake Total 600 ml 540 ml Balance 600 ml 540 ml Intake Oral 600 ml 540 ml # Voids 1 3 Laboratory Tests 01/06/17 05:30: White Blood Count 6.2, Red Blood Count 3.75L, Hemoglobin 11.2L, Hematocrit 33.6L , Mean Corpuscular Volume 90, Mean Corpuscular Hemoglobin 29.8, Mean Corpuscular Hemoglobin Concent 33.2, Red Cell Distribution Width 13.4, Platelet Count 239, Mean Platelet Volume 7.0, Neutrophils (%) (Auto) 67.4, Lymphocytes (% ) (Auto) 18.4L, Monocytes (%) (Auto) 10.3H, Eosinophils (%) (Auto) 3.0, Basophils (%) (Auto) 1.0, Sodium Level 137, Potassium Level 4.4, Chloride Level 99, Carbon Dioxide Level 23, Anion Gap 15, Blood Urea Nitrogen 28H, Creatinine 1.5H, Estimat Glomerular Filtration Rate , Glucose Level 108H, Calcium Level 9.2 Current Medications Medications (Trade) Dose Ordered Sig/Sosa Route PRN Reason Start Time Stop Time Status Last Admin Dose Admin Acetaminophen (Tylenol) 650 mg Q6H PRN ORAL Mild Pain/Temp > 100.5 01/02/17 00:30 02/01/17 00:29 Acetaminophen/ Hydrocodone Bitart ([place] 5/325) 1 tab Q6H PRN ORAL For Pain 01/02/17 00:30 6/8/17 00:29 Clotrimazole (Lotrimin) 1 applic EVERY 12 HOURS TOPIC 01/06/17 21:00 02/05/17 20:59 Docusate Sodium (Colace) 100 mg EVERY 12 HOURS ORAL 01/02/17 21:00 02/01/17 20:59 01/06/17 08:38 Heparin Sodium (Porcine) (Heparin 5000 units/ml) 5,000 units EVERY 8 HOURS SUBQ 01/02/17 08:00 02/01/17 07:59 01/06/17 14:16 Lisinopril (Prinivil) 20 mg DAILY ORAL 01/02/17 09:00 02/01/17 08:59 01/06/17 08:38 Lorazepam (Ativan) 1 mg Q4H PRN ORAL For Anxiety 01/02/17 16:00 01/09/17 15:59 Morphine Sulfate (Morphine Sulfate) 4 mg EVERY 6 HOURS PRN IVP Severe Pain (Pain Scale 7-10) 01/02/17 00:30 01/09/17 00:29 01/06/17 10:02 Ondansetron HCl (Zofran) 4 mg Q6H PRN IVP Nausea & Vomiting 01/02/17 16:00 02/01/17 15:59 Temazepam (Restoril) 15 mg HSPRN PRN ORAL Insomnia 01/02/17 16:00 01/09/17 15:59 01/02/17 21:11 JAQUAN SOFIA Jan 06, 2017 16:03
--- NOTE | 2017-01-06 23:00 | Consultation ---
DATE OF CONSULTATION: 01/02/2017 ORTHOPEDIC CONSULTATION CONSULTING PHYSICIAN: Talon Ferguson M.D. REQUESTING PHYSICIAN: Seven Nelson M.D. CHIEF COMPLAINT: Left hip pain. HISTORY OF PRESENT ILLNESS: The patient is a pleasant 81-year-old female, who sustained a mechanical fall. She had difficulty ambulating. She presented to the ER where CT scan showed a pelvic ring fracture and therefore orthopedic consult was obtained for further care and recommendation. The patient has pain in the left hip as well as in the posterior buttock area. No numbness or tingling in the lower extremity. PAST MEDICAL HISTORY: Reviewed from the intake chart. PAST SURGICAL HISTORY: Reviewed from the intake chart. MEDICATIONS: Reviewed from the intake chart. PHYSICAL EXAMINATION: Examination showed pain along the pubic rami. There is pain along the posterior aspect of the joint as well as pain along the lumbar muscles. Sensation diminished L1 to S1 distribution to light touch and no left hip pain with internal or external rotation. Negative femur strike. DIAGNOSTIC DATA: CT scan of the pelvis was reviewed, which showed what appears to be minimally displaced pubic rami fracture on the left with sacral impaction on the left SI joint. ASSESSMENT: Left compression grade 2 pelvic ring fracture. DISCUSSION: At this point, with this type of injury, we are going to get on with PT/OT and it will take 12 weeks for this to heal. A referral to physical therapy was done. We will wait to see how she does in terms of getting up and around in order to figure out disposition planning. Case was discussed with her daughter. Talon Ferguson M.D. DR: TIESHA JOB#: [id number] CC:
--- NOTE | 2017-01-07 13:51 | Discharge Summary ---
Discharge Summary Hospital Course Date of Admission January 01, 2017 at 20:44 Date of Discharge Jan 06, 2017 at 17:45 Admitting Diagnosis HPI Laura Anand is a 81 year old female who was admitted on January 01, 2017 at 20: 44 for Pelvic Fracture Hospital Course dc summary #[id number] Discharge Medications New Medications: Hydrocodone Bit/Acetaminophen 5-325* ([place] 5-325*) 1 Each Tablet 1 TAB ORAL Q6H PRN for 30 Days, TAB Lisinopril (Lisinopril*) 20 Mg Tablet 20 MG ORAL DAILY for 30 Days, TAB Discharge Condition Upon Discharge: stable Discharge Disposition Patient was discharged to Home with Home Health(06) Discharge Diagnoses: Minh ([facility])Lennie NP Jan 07, 2017 13:51
--- NOTE | 2017-01-08 09:30 | Discharge Summary 2 SIG ---
DATE OF ADMISSION: 01/01/2017 DATE OF DISCHARGE: 01/06/2017 Reason For Admission: The patient is an 81-year-old female, apparently sustained a fall on 12/30/2016. The patient was unable to get up. The patient fell over while trying to get out of the toilet. The patient did not pass out. No head injury. No loss of consciousness. No dizziness. However, the patient could not get up the floor and remained on the floor until 5:31. Her daughter called 911. The patient was transported to [facility] emergency room found to have a fracture of the superior and inferior pubic rami on the left. The patient was transferred to [facility] for insurance purposes. ADMITTING DIAGNOSES: Include, 1. Status post mechanical fall. 2. Pelvic fracture. 3. Sacral pain at the fracture site. HOSPITAL STAY: The patient was admitted. Orthopedic consult was requested. Again, CT of the pelvis revealed comminuted multipartite fracture of the left superior and inferior pubic rami. No acute hip fracture. No surgical intervention needed. Weightbearing as tolerated by orthopedic surgeon. According to orthopedic surgeon for this type of fracture it takes about 12 weeks to heal. The patient is to follow up with orthopedic surgeon as outpatient. Pain management was addressed and provided. Pain was controlled. The patient was working with physical and occupational therapy. DVT prophylaxis was provided. Blood pressure was managed with CASIE inhibitor and was stable. Bowel regimen was instituted. The patient was initially noted to have elevated creatinine of 1.5, no change with some gentle IV fluids in the range between 1.3 to 1.7, upon discharge 1.5, likely chronic renal insufficiency possibly due to history of hypertension. The patient declined to go to [facility] facility. The patient preferred to go home with home health. Home health was arranged. The patient was stable for discharge home with home health. FINAL DIAGNOSES: Include, 1. Status post mechanical fall. 2. Pelvic fracture. 3. Pelvic and sacral pain on the side of fracture. 4. Chronic renal insufficiency. 5. Hypertension. DISCHARGE MEDICATIONS: See medication reconciliation list. DISCHARGE INSTRUCTIONS: The patient was discharged home with home health services. FOLLOWUP: Follow up with the primary medical doctor. Follow up as an outpatient with the surgeon. Seven Nelson M.D. I have been assigned to dictate discharge summary on this account and I was not involved in the patient's management. Lennie Wilkinson (vanchtein) NPing DR: ERIC JOB#: [id number] CC:
== END 2017-01-06 17:45 | disposition home health service (06) | DRG 536 ==
LOC: 4W 20:44 → 4E 01-03 12:09
DX: S32.512A Fracture of superior rim of left pubis, initial encounter for closed fracture (principal); N17.9 Acute kidney failure, unspecified; E66.01 Morbid (severe) obesity due to excess calories; E87.5 Hyperkalemia; S32.592A Other specified fracture of left pubis, initial encounter for closed fracture; W18.11XA Fall from or off toilet without subsequent striking against object, initial encounter; Y92.002 Bathroom of unspecified non-institutional (private) residence as the place of occurrence of the external cause; I12.9 Hypertensive chronic kidney disease with stage 1 through stage 4 chronic kidney disease, or unspecified chronic kidney disease; N18.9 Chronic kidney disease, unspecified; Z68.34 Body mass index [BMI] 34.0-34.9, adult
CPT/HCPCS: 36415; 72192; 80048; 80053; 82962; 83735; 84100; 85025; 85610; 85730; 93005